=== PATIENT | male | born 1975 | race Caucasian/White ===

== ENCOUNTER 2017-01-30 07:39 | Emergency (ER) | payer OTHER ==
[~2017-01-30] VITALS: Ht 170.2 cm; Wt 77.1 kg
--- NOTE | 2017-01-30 08:07 | ED CARDIAC/CP/PALPITATIONS ---
History of Present Illness General Chief Complaint: General Adult Stated Complaint: SOB X 1 WEEK, ANXIETY,PAIN W/ BREATHING Source: patient Exam Limitations: no limitations Vital Signs & Intake/Output Vital Signs & Intake/Output Vital Signs Date Time Temp Pulse Resp B/P B/P Pulse O2 O2 Flow FiO2 Mean Ox Delivery Rate 01/30 0958 97.9 58 18 106/70 99 01/30 0755 99 Room Air 01/30 0747 95.5 73 18 123/86 98 Room Air Allergies Coded Allergies: No Known Allergies (01/30/17) Reconcile Medications No Known Home Medications Triage Note: C/O HEART RACING AND FEELING ANXIOUS WHILE DRIVING TO WORK, STATES HE FELT LIKE HE WAS HAVING A PANIC ATTACK. SEEN 10 DAYS A[facility] AT [facility], WAS GIVEN 1 XANAX WHICH HELPED. C/O CHEST FEELING "WEIRD" AND SOB. Triage Nurses Notes Reviewed? yes HPI: Patient presents with a weeklong history of substernal chest pressure and shortness of breath. Patient states symptoms are worse in the morning when he is driving to work. Patient states that he has a very stressful job. There is no radiation of the pressure. The pressure is aggravated when he thinks about his job. Patient is able to sleep all night so does not know if he has a pressure at that time. There is no diaphoresis. Patient was seen at [place] emergency room and he states that they just gave him Ativan any middle sleep for a few hours and then when he woke up to discharged him with a prescription for Xanax. Patient does not know if this is his heart were feet just is having anxiety because of stressful job. Patient presents for reevaluation. At its worst pressure is 8 out of 10. Patient states that he woke up at 5:30 this morning and noticed the pressure sensation. Past History Travel History Traveled to [place] past 21 day No Medical History Any Pertinent Medical History? none Neurological: NONE EENT: NONE Cardiovascular: NONE Respiratory: NONE Gastrointestinal: NONE Hepatic: NONE Musculoskeletal: NONE Psychiatric: NONE Endocrine: NONE Surgical History Surgical History: non-contributory Psychosocial History What is your primary language East Timorese Tobacco Use: Never used ETOH Use: denies use Illicit Drug Use: denies illicit drug use Family History Hx Contributory? No Review of Systems Review of Systems Constitutional: Reports: no symptoms. EENTM: Reports: no symptoms. Respiratory: Reports: see HPI, short of breath. Cardiovascular: Reports: see HPI, chest pain. GI: Reports: no symptoms. Genitourinary: Reports: no symptoms. Musculoskeletal: Reports: no symptoms. Skin: Reports: no symptoms. Neurological/Psychological: Reports: see HPI, anxiety. Hematologic/Endocrine: Reports: no symptoms. Immunologic/Allergic: Reports: no symptoms. All Other Systems: Reviewed and Negative Physical Exam Physical Exam General Appearance: well developed/nourished, alert, awake, mild distress Head: atraumatic, normal appearance Eyes: Bilateral: PERRL, EOMI. Ears, Nose, Throat: normal pharynx, normal ENT inspection Neck: normal inspection, supple, full range of motion Respiratory: normal breath sounds, chest non-tender, no respiratory distress, lungs clear Cardiovascular: regular rate/rhythm, normal peripheral pulses Gastrointestinal: normal bowel sounds, soft, non-tender, no organomegaly Back: normal inspection, normal range of motion Extremities: normal inspection, normal capillary refill, normal range of motion, no edema Neurologic/Psych: no motor/sensory deficits, awake, alert, oriented x 3, normal gait, normal mood/affect Skin: intact, normal color, warm/dry Lymphatic: no anterior cervical kourtney Core Measures ACS in differential dx? Yes ASA ordered for poss ACS? No-ACS ruled out Severe Sepsis Present: No Septic Shock Present: No Progress Differential Diagnosis: AMI, atrial fibrillation, cholecystitis, costochondritis , hyperthyroid, musculoskeletal pain, pneumonia, pneumothorax, PSVT, pulmonary embolism Plan of Care: Orders Procedure Date/time Status TROPONIN LEVEL 01/30 0932 Complete Add-on Test (ER Only) 01/30 0841 Active ED CRISIS PSYCH CONSULT 01/30 0810 Active Telemetry/Fudge Candy Maker 01/30 0807 Active TROPONIN LEVEL 01/30 0807 Complete D-DIMER 01/30 0807 Complete COMPREHENSIVE METABOLIC PANEL 01/30 0807 Complete CBC WITHOUT DIFFERENTIAL 01/30 0807 Complete THYROID STIMULATING HORMONE 01/30 0800 Complete EKG 01/30 0748 Active Laboratory Tests 01/30/17 0950: Troponin I < 0.01 01/30/17 0800: Anion Gap 13, Estimated GFR > 60, BUN/Creatinine Ratio 15.6, Glucose 105 H, Calcium 9.6, Total Bilirubin 1.2, AST 16 L, ALT 24, Alkaline Phosphatase 59, Troponin I < 0.01, Total Protein 7.9, Albumin 4.7, Globulin 3.2, Albumin/ Globulin Ratio 1.5, TSH 2.040, D-Dimer 362 H, CBC w Diff NO MAN DIFF REQ, RBC 5.41, MCV 83.5, MCH 28.4, RDW 13.9, MPV 8.8, Gran % 74.3, Lymphocytes % 16.5 L, Monocytes % 7.8, Eosinophils % 0.8, Basophils % 0.6, Absolute Granulocytes 3.9, Absolute Lymphocytes 0.9 L, Absolute Monocytes 0.4, Absolute Eosinophils 0, Absolute Basophils 0, PUBS MCHC 34.0 Diagnostic Imaging: Viewed by Me: CT Scan. Discussed w/RAD: CT Scan. Radiology Impression: PATIENT: WENCESLAO JUSTICE PRESENT AGE: 41 PATIENT ACCOUNT NO: [id number] : 77 LOCATION: [facility] ORDERING PHYSICIAN: CAMPBELL VALENZUELA MD SERVICE DATE: 01/30/17 EXAM TYPE: CAT - CTA CHEST-PULMONARY EMBOLISM EXAMINATION: CT ANGIOGRAM OF THE CHEST WITH AND WITHOUT CONTRAST (CT PULMONARY ANGIOGRAM FOR PE) CLINICAL INFORMATION: Shortness of breath. Positive d-dimer. COMPARISON: None TECHNIQUE: Prior to contrast administration, noncontrast localization images were obtained. Subsequently, multidetector volumetric imaging was performed from the thoracic inlet to below the diaphragms following the administration of 115 mL Optiray 350 intravenous contrast. No contrast reaction reported. Sagittal, coronal, and MIP oblique sagittal reformatted images were obtained on the CT workstation, uploaded to PACS, and reviewed. Total exam dose-length product 485 mGy-cm. FINDINGS: QUALITY OF STUDY/CONTRAST BOLUS: Satisfactory PULMONARY ARTERIES: No central or segmental pulmonary emboli. THORACIC AORTA: No aneurysm or dissection. LUNG: The central airways are patent. Minimal bibasilar subsegmental atelectasis. No dense consolidation. No pulmonary nodules. PLEURA: No pleural effusion or pneumothorax. MEDIASTINUM: The visualized portion of the thyroid gland is unremarkable. The heart is normal in size. No pericardial effusion. No mediastinal lymphadenopathy. No evidence of septal bowing or right heart strain. CHEST WALL/AXILLA: No axillary or internal mammary lymphadenopathy. OSSEOUS STRUCTURES: No acute or suspicious osseous abnormality. UPPER ABDOMEN: Suspect a small diverticulum from the gastric fundus. No reflux of contrast into the hepatic veins to suggest elevated right heart pressures. IMPRESSION: No pulmonary embolism or other acute intrathoracic abnormality. VTE: negative DICTATED BY: RUTH LUBIN MD DATE/TIME DICTATED:01/30/17910 PRODUCTION TRUCK DRIVER:CHAMP DATE/TIME TRANSCRIBED:01/30/17910 CONFIDENTIAL, DO NOT COPY WITHOUT APPROPRIATE AUTHORIZATION. <Electronically signed in Other Vendor System> SIGNED BY: RUTH LUBIN MD 01/30/17916 Initial ED EKG: NSR, no ST T wave changes Rhythm Strip: normal sinus rhythm Departure Departure Disposition: HOME OR SELF CARE Condition: Stable Clinical Impression Primary Impression: Chest pain, unspecified Qualifiers: Chest pain type: other chest pain Qualified Code: R07.89 - Other chest pain Additional Instructions: follow up as per recommendations of the admissions clinician return for any concerns Departure Forms: Customer Survey General Discharge Information Prescriptions: Current Visit Scripts Gabapentin (Neurontin) 1 CAP PO TID PRN ANXIETY #90 CAP Critical Care Note Critical Care Note Critical Care Time: non-applicable
[2017-01-30 08:17] LABS: ABSOLUTE BASOPHIL COUNT 0 /CUMM (0.0-0.2); ABSOLUTE EOSINOPHIL COUNT 0 /CUMM (0.0-0.7); ABSOLUTE GRANULOCYTE CT 3.9 /CUMM (1.4-6.5); ABSOLUTE LYMPH COUNT 0.9 /CUMM (1.2-3.4); ABSOLUTE MONOCYTE COUNT 0.4 /CUMM (0.10-0.60); BASOPHIL % 0.6 % (0.0-2.0); EOSINOPHIL % 0.8 % (0-5); GRANULOCYTE % 74.3 % (42.2-75.2); HEMATOCRIT 45.2 % (42-52); MEAN CORPUSCULAR HGB 28.4 PG (27.0-31.0); MEAN CORPUSCULAR VOLUME 83.5 FL (80.0-94.0); MEAN PLATELET VOLUME 8.8 FL (7.4-10.4); PLATELET COUNT 250 /CUMM (130-400); RBC DISTRIBUTION WIDTH 13.9 % (11.5-14.5); RED BLOOD CELL CT 5.41 /CUMM (4.70-6.10); WHITE BLOOD CELL COUNT 5.2 /CUMM (4.8-10.8)
--- NOTE | 2017-01-30 09:17 | CT SCAN REPORT ---
EXAMINATION: CT ANGIOGRAM OF THE CHEST WITH AND WITHOUT CONTRAST (CT PULMONARY ANGIOGRAM FOR PE) CLINICAL INFORMATION: Shortness of breath. Positive d-dimer. COMPARISON: None TECHNIQUE: Prior to contrast administration, noncontrast localization images were obtained. Subsequently, multidetector volumetric imaging was performed from the thoracic inlet to below the diaphragms following the administration of 115 mL Optiray 350 intravenous contrast. No contrast reaction reported. Sagittal, coronal, and MIP oblique sagittal reformatted images were obtained on the CT workstation, uploaded to PACS, and reviewed. Total exam dose-length product 485 mGy-cm. FINDINGS: QUALITY OF STUDY/CONTRAST BOLUS: Satisfactory PULMONARY ARTERIES: No central or segmental pulmonary emboli. THORACIC AORTA: No aneurysm or dissection. LUNG: The central airways are patent. Minimal bibasilar subsegmental atelectasis. No dense consolidation. No pulmonary nodules. PLEURA: No pleural effusion or pneumothorax. MEDIASTINUM: The visualized portion of the thyroid gland is unremarkable. The heart is normal in size. No pericardial effusion. No mediastinal lymphadenopathy. No evidence of septal bowing or right heart strain. CHEST WALL/AXILLA: No axillary or internal mammary lymphadenopathy. OSSEOUS STRUCTURES: No acute or suspicious osseous abnormality. UPPER ABDOMEN: Suspect a small diverticulum from the gastric fundus. No reflux of contrast into the hepatic veins to suggest elevated right heart pressures. IMPRESSION: No pulmonary embolism or other acute intrathoracic abnormality. VTE: negative
[2017-01-30] MEDS ORDERED: NEURONTIN300 M1 PO (12:13)
[2017-01-30 12:14] VITALS: BP 120/79
--- NOTE | 2017-01-30 13:44 | ED PSYCH CRISIS CONSULTATION ---
See Addendum Crisis Consult Basic Assessment Date of Consult: 01/30/17 Responsible Person/Accompanied By: Self Insurance Authorization: Insurance #1: Insurance name: MANUEL BYRNE Phone number: Policy number: [id number] Group number: [id number] Authorization number: ED Provider: Patient's ED Provider: BIANCA BARRAGAN,CAMPBELL Galloway Primary Care Physician: Patient's PCP: PATIENT HAS NO PRIMARY CARE DR PCP's Phone Number: Chief Complaint: SOB X 1 week, anxiety, pain with breathing Patient's Quote: "I cannot deal with everything at home anymore; I just want to go hide." Present Illness: 41 M brought himself to the ED 01/30/17 0746 with a CC of weeklong shortness of breath, non-radiating chest pain and worsening depressin and anxiety. He lives in [place], [place] and travels to various work locations for a [employer], and is currently working in [place], [place]. 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 He lives with his GF and their 4 children, ages 5, 7, 10, and 13. She is a nursing officer, due to graduate in a few weeks. He had asked her recently to stop working, as he did not feel able to care for the children when he came home from work. He has been sleeping poorly at home, no more than 4-5 hours per night ; he sleeps in the camper next to the house to avoid the stress of the household. These increase symptoms of depression began several weeks ago. VS 01/30 0958: 106/70, 58, 97.9, 18, 99%RA Labs 01/30: D-dimer 362H, TSH 2.04, troponins < 0.01 CXR 01/30: No pulmonary embolism, or other acute intrathoracic abnormality. PPHx: denies PFPHx: Father alcoholic Mother "had two depressions, but does not think she is on medication. His sister night be on medication; Dx if any, is unknown MSE: Alert, oriented to person, off by one day, knows he is in a hospital, knows the month. Denies AVH, and presents no peterson delusions. Denies current SI/HI, but reports he has had thoughts of being , without plan or intent. His children are a protective factor. He denies any history of suicide attempt. Depression /; struggles to go to work. Hopeless sometimes, but denies helplesness or worthlessness. Feelings of depression have been present for about 2 weeks. Does not scale anxiety, but feels better during the exam. He describes worrying about everything, including his children. "I thought anxiety was normal." Last 2 weeks he has been feeling worse, "Everything is a big deal." Denies psychiatric diagnosis, treatment or hospitalization. Drank alcohol on weekends until the winter holidays in 2015; reports it made him feel worse, and he is concerned that he might become like his father, who he states is an alcoholic. No current drug use, but used cannabis until age [age]. Denies "hard drugs use, like heroin, cocaine. Sleep is poor, 4-5 hours/night. He sleeps in his camper to avoid stress of dealing with children, which is fairly new. Denies bad dreams. Appetite poor when he is anxious. No history of periods when he did not feel the need for sleep. No history of dangerous or impulsive behaviors, including spending, gambling. Poor student in primary, but denies hyperactivity symptoms, denies inattention symptoms. Patient's [address]: [address] [place] [address] Other Phone Number: Who Do You Live With? Significant Other (SO and 4 children) Family/Informants Interviewed: Not evaluated; GF in school. Allergies - Coded Allergies: No Known Allergies (01/30/17) Current Medications - Scheduled PRN Medications Gabapentin (Neurontin) 300 MG CAPSULE 1 CAP PO TID PRN ANXIETY #90 CAP Prescribed by CAMPBELL VALENZUELA MD on 01/30/17 Laboratory Results: Laboratory Tests 01/30/17 0950: Troponin I < 0.01 01/30/17 0800: Anion Gap 13, Estimated GFR > 60, BUN/Creatinine Ratio 15.6, Glucose 105 H, Calcium 9.6, Total Bilirubin 1.2, AST 16 L, ALT 24, Alkaline Phosphatase 59, Troponin I < 0.01, Total Protein 7.9, Albumin 4.7, Globulin 3.2, Albumin/ Globulin Ratio 1.5, TSH 2.040, D-Dimer 362 H, CBC w Diff NO MAN DIFF REQ, RBC 5.41, MCV 83.5, MCH 28.4, RDW 13.9, MPV 8.8, Gran % 74.3, Lymphocytes % 16.5 L, Monocytes % 7.8, Eosinophils % 0.8, Basophils % 0.6, Absolute Granulocytes 3.9, Absolute Lymphocytes 0.9 L, Absolute Monocytes 0.4, Absolute Eosinophils 0, Absolute Basophils 0, PUBS MCHC 34.0 Past History Past Medical History Neurological: NONE EENT: NONE Cardiovascular: NONE Respiratory: NONE Gastrointestinal: NONE Hepatic: NONE Musculoskeletal: NONE Psychiatric: NONE Endocrine: NONE Past Surgical History Surgical History: non-contributory Psychosocial History Strengths/Capabilities: Works full-time. Goal-directed, future-oriented, motivated for treatment. Physical Limitations (Interventions): None noted Psychiatric Treatment History Psych Treatment Psychiatric Treatment No (Denies) Inpatient Treatment No Outpatient Treatment No Substance Use/Abuse History Drug Use/Abuse Substances Used/Abused No Substance Abuse Treatment Substance Abuse Treatment Past Substance Abuse [place] No (Denies) Inpatient Treatment No Comments: Drank a six pack on weekends only until September 2016. Never felt he had a problem, but stopped because it made his anxiety worse. Cannabis until age [age]. Denies other street/rec drugs. Current Mental Status Mental Status Orientation: Knows name, month, off by one day, that he is in a hospital. Affect: WNL Speech: WNL Neuro-vegetative: Anhedonia, Appetite Decreased, Loss of Interest, Sleep Disturbance Appearance Appearance- Dress/Hygiene: Street clothes, well-groomed. Behaviors Thought Process: WNL Thought Content: WNL Memory: WNL Insight: Fair SI/HI Risk Assessment Past Suicidal Ideation/Attempts Yes Current Suicidal Ideation/Att No Past Homicidal Ideation/Att: No Current Homicidal Ideation/Attempts No Degree of Intent: Thoughts/No Intent Risk Factors: age (under 24/over 65) (No firearms in house), male, limited support PTSD Checklist PTSD Score: PTSD Score: Response Value Disturbing memories,thoughts,images of stressful experience? A little bit 2 Disturbing dreams of stressful experience from past? Not at all 1 Suddenly acting/feeling as if reliving stressful experience? Not at all 1 Unpleasant feeling when reminded of stressful experience? Not at all 1 Physical reactions when reminded of stressful experience? Not at all 1 Avoid thinking/talking of stressful exp. to avoid reactions? Not at all 1 Avoid activities/situations that remind of stressful exp.? Not at all 1 Trouble remembering important parts of stressful experience? Not at all 1 Loss of interest in things that you used to enjoy? A little bit 2 Feeling distant or cut off from other people? Not at all 1 Feeling emotionally numb/unable to love those close to you? Not at all 1 Feeling as if your future will somehow be cut short? Not at all 1 Trouble falling or staying asleep? Quite a bit 4 Feeling irritable or having angry outbursts? A little bit 2 Having difficulty concentrating? A little bit 2 Being super alert or watchful on guard? Not at all 1 Feeling jumpy or easily startled? A little bit 2 Total 25 ED Management Sitter: No Restraints: No DSM5/PS Stressors/Medical Prob Diagnosis' (DSM 5, Stressors, Medical): F32.9 Unspecified depressive disorder with anxious distress, moderate. R/O MDD R/O DEIRDRE Current GAF: 51 Departure Disposition Psych Medical Clearance Date: 01/30/17 Medically Cleared at: 1200 Time Started: 1030 Time Ended: 1100 Psychiatrist Consulted: Dr. Blayne Earl Date Disposition Established: 01/30/17 Time Disposition Established: 1200 Plan for Disposition - Modality: Outpatient (Pt will call Manuel for provide) Facility: Patient to Arrange Rationale for Disposition: Acute anxiety has resolved. Not suicidal nor homicidal Instructed to call MANUEL for psych referral, but given contact information for Dr. Gabriella Penn in [place], [place]. Started on gabapentin 300 mg PO up to 3X/day as needed for anxiety, an off-label use. Alternatively, the patient may take 300 mg in the AM and 600 mg at night. R /B/SE reviewed with patient; patient info sheet provided. Additional Instructions: Call back to Crisis dept if questions. Referrals PATIENT HAS NO PRIMARY CARE DR (PCP/Family)
== END 2017-01-30 12:45 ==
LOC: ERH 07:39
PROVIDERS: Emergency Medicine
DX: R07.89 Other chest pain (principal); F41.9 Anxiety disorder, unspecified
CPT/HCPCS: 93005; 93010; G0463; Q9965